=== PATIENT | male | born 1995 | race Caucasian/White ===

== ENCOUNTER 2021-09-06 13:08 | Emergency (ER) | payer SELFPAY ==
[~2021-09-06] VITALS: Ht 172.7 cm; Wt 76.7 kg
--- NOTE | 2021-09-06 13:34 | PHYS DOC ---
General Adult EDM: Chief Complaint: ABDOMINAL PAIN HPI: HPI: Patient is a 25-year-old male coming in for left upper quadrant abdominal pain and vomiting. Patient states he was at work when his symptoms started and were fairly rapid in onset. Patient's last bowel movement this morning. Denies any hematuria or dysuria. No medical or surgical history. Pain does not radiate to the back. Review of Systems: Review of Systems: All other systems within normal limits except for as noted in the HPI Physical Exam: PE: Constitutional: Well developed, well nourished, no acute distress, non-toxic appearance. [] HENT: Normocephalic, atraumatic, bilateral external ears normal, nose normal. [] Eyes: PERRLA, conjunctiva normal, no discharge. [] Neck: No rigidity, supple, no stridor. [] Cardiovascular: Regular rate and rhythm, brisk cap refill [] Lungs & Thorax: Non labored symmetric respirations, no tachypnea or respiratory distress [] Abdomen: Soft, nondistended, left upper quadrant pain. Skin: Warm, dry, no erythema, no rash. [] Back: Unremarkable Extremities: No deformities, range of motion grossly intact, no lower extremity edema [] Neurologic: Alert and oriented X 3, no focal deficits noted. [] Psychologic: Affect normal, judgement normal, mood normal. [] EKG: EKG: [] Radiology/Procedures: Radiology/Procedures: [place] [address] IMAGING REPORT Signed PATIENT: SHEREE PAYNE ACCOUNT: [id number] : 1995 LOCATION: ER AGE: 25 SEX: M EXAM STATUS: REG ER ORD. PHYSICIAN: APRIL BEDOLLA MD REASON: pancreatitis PROCEDURE: ABDOMEN OR LWR BACK LTD Ultrasound the abdomen limited HISTORY: Pancreatitis Ultrasound was used to evaluate the gallbladder and right upper quadrant. Mid body the pancreas was generous in size without abnormal fluid. Head and tail of pancreas were incompletely evaluated. Aorta and vena cava were unremarkable. Liver was normal in size and appearance. There is slight sludge in the gallbladd er, gallstones were not identified. Gallbladder wall is not thickened. Focal liver lesion was not identified. Common duct was normal measuring 2 mm. Right kidney was 11.7 cm in length without a mass or hydronephrosis. IMPRESSION: 1. No gallstones noted. 2. Common duct nondilated. 3. Liver normal in appearance. Electronically signed by: Sunny Huff MD (09/06/2021 4:04 PM) [facility] DICTATED AND SIGNED BY: SUNNY HUFF MD DATE: 09/06/21 1602 CC: APRIL BEDOLLA MD; PCP,NO ~MTH0 0 [][place] [address] IMAGING REPORT Signed PATIENT: SHEREE PAYNE ACCOUNT: [id number] : 1995 LOCATION: ER AGE: 25 SEX: M EXAM STATUS: REG ER ORD. PHYSICIAN: APRIL BEDOLLA MD REASON: Left abd pain, language barrier for breathing instructions PROCEDURE: CT ABD PELV W/ IV CONTRST ONLY CT abdomen pelvis with contrast. HISTORY: Left abdominal pain CT abdomen pelvis was done using 75 mL Omnipaque 300 contrast. There is mild atelectasis in the lung bases without other infiltrates. Spleen is unremarkable. Liver is normal in appearance. There is no calcified gallstone. There is no ma ss or hydronephrosis in the kidneys. A ureteral calculus is not identified. Pancreas is normal in appearance. There is no bowel obstruction. There is increased stool at the rectum. There is no small bowel obstruction. There is no adenopathy. Appendix is normal in appearance. There is not evidence of a diverticulitis. IMPRESSION: 1. Mild increased stool at the rectum. 2. No small bowel obstruction noted. 3. Negative for diverticulitis. 4. No renal or ureteral calculus. RS Compliance Statement: One or more of the following individualized dose reduction techniques were utilized for this examination: 1. Automated exposure control 2. Adjustment of the mA and/or kV according to patient size 3. Use of iterative reconstruction technique Electronically signed by: Sunny Huff MD (09/06/2021 2:51 PM) [facility] DICTATED AND SIGNED BY: SUNNY HUFF MD DATE: 09/06/21 1431 CC: APRIL BEDOLLA MD; PCP,NO ~MTH0 0 Heart Score: C/O Chest Pain: No Risk Factors: Risk Factors: DM, Current or recent (<one month) smoker, HTN, HLP, family hist ory of CAD, obesity. Risk Scores: Score 0 - 3: 2.5% MACE over next 6 weeks - Discharge Home Score 4 - 6: 20.3% MACE over next 6 weeks - Admit for Clinical Observation Score 7 - 10: 72.7% MACE over next 6 weeks - Early Invasive Strategies Course & Med Decision Making: Course & Med Decision Making Pertinent Labs and Imaging studies reviewed. (See chart for details) Discussed with [facility] transfer line, will accept patient. Patient with pancreatitis without evidence of gallstones or no history of alcohol use. Patient was found to be significantly hypercalcemic as well as hypophosphatemic. Send out labs sent for thyroid and parathyroid studies. Concern for primary hyperparathyroid syndrome causing the lab abnormalities and the hypercalcemia possibly precipitating the pancreatitis. Patient given IV fluids and phosphate in the emergency department. [] Susu Disclaimer: Susu Disclaimer: This electronic medical record was generated, in whole or in part, using a voice recognition dictation system. Departure Departure: Impression: Primary Impression: Pancreatitis Additional Impressions: Hypercalcemia Hypophosphatemia Disposition: 02 SHORT TERM HOSPITAL Condition: GUARDED Referrals: PCP,NO (PCP) APRIL BEDOLLA MD Sep 06, 2021 13:34
[2021-09-06 13:43] LABS: BASO % 0 % (0-3); EOS # 0.1 x10^3/uL (0.0-0.7); EOS % 1 % (0-3); HEMATOCRIT 47.2 % (39.0-53.0); HEMOGLOBIN 15.7 g/dL (13.0-17.5); LYMPH # 2.3 x10^3/uL (1.0-4.8); LYMPH % 18 % (24-48); MEAN CORPUSCULAR HEMOGLOBIN 30 pg (25-35); MEAN CORPUSCULAR HGB CONC 33 g/dL (31-37); MEAN CORPUSCULAR VOLUME 91 fL (79-100); MONO % 8 % (0-9); NEUT # 9.2 x10^3uL (1.8-7.7); NEUT % 73 % (31-73); PLATELET COUNT 320 x10^3/uL (140-400); RED CELL DISTRIBUTION WIDTH 14.1 % (11.5-14.5); WHITE BLOOD COUNT 12.6 x10^3/uL (4.0-11.0)
[2021-09-06] MEDS ORDERED: IV NORMAL SALINE 1,000ML 1,000 ML IV ONE ×3 (13:45→16:30)
[2021-09-06] MEDS ORDERED: ONDANSETRON PF 4 MG/2 ML VIAL. IVP ONE (13:45)
[2021-09-06] MEDS ORDERED: IOHEXOL 300 MG/ML 75 ML VIAL. IV ONE (13:45)
[2021-09-06] MEDS ORDERED: KETOROLAC 15 MG/ML VIAL. IVP ONE (13:45)
[2021-09-06 14:07] LABS: ALBUMIN 4.5 g/dL (3.4-5.0); ALBUMIN/GLOBULIN RATIO 1.1 (1.0-1.7); GFR 90.3; POTASSIUM 3.6 mmol/L (3.5-5.1); TOTAL BILIRUBIN 0.4 mg/dL (0.2-1.0); TOTAL PROTEIN 8.5 g/dL (6.4-8.2)
--- NOTE | 2021-09-06 14:53 | RAD ---
CT abdomen pelvis with contrast. HISTORY: Left abdominal pain CT abdomen pelvis was done using 75 mL Omnipaque 300 contrast. There is mild atelectasis in the lung bases without other infiltrates. Spleen is unremarkable. Liver is normal in appearance. There is no c alcified gallstone. There is no mass or hydronephrosis in the kidneys. A ureteral calculus is not bridgette ntified. Pancreas is normal in appearance. There is no bowel obstruction. There is increased stool at the rectum. There is no small bowel obstruction. There is no adenopathy. Appendix is normal in appea yusef. There is not evidence of a diverticulitis. IMPRESSION: 1. Mild increased stool at the rectum. 2. No small bowel obstruction noted. 3. Negative for diverticulitis. 4. No renal or ureteral calculus. PQRS Compliance Statement: One or more of the following individualized dose reduction techniques were utilized for this examinat ion: 1. Automated exposure control 2. Adjustment of the mA and/or kV according to patient size 3. Use of iterative reconstruction technique Electronically signed by: Sunny Morgan MD (09/06/2021 2:51 PM) [facility]
[2021-09-06 15:06] LABS: MAGNESIUM 2.2 mg/dL (1.8-2.4); PHOSPHORUS 1.9 mg/dL (2.6-4.7)
[2021-09-06 15:13] LABS: CALCIUM 14.2 mg/dL (8.5-10.1)
[2021-09-06 15:17] LABS: BACTERIA,URINE 0 /HPF (0-FEW); BILIRUBIN,URINE NEG (NEG); CLARITY,URINE CLEAR; COLOR,URINE YELLOW; GLUCOSE,URINE NEG (NEG); NITRITE,URINE NEG (NEG); RBC,URINE 0 /HPF (0-2); SQUAMOUS EPITHELIAL CELL,UR OCC /LPF; UROBILINOGEN,URINE 0.2 mg/dL (0.2 mg/dL); WBC,URINE 0 /HPF (0-4)
--- NOTE | 2021-09-06 15:20 | NUR ---
PAGED [facility]
[2021-09-06] MEDS ORDERED: SODIUM PHOSPHATE 20 MMOL in IV DEXTROSE 5% 250 ML IV ONE (15:30)
[2021-09-06] MEDS ORDERED: POTASSIUM PHOSPHATE DIBASIC 20 MMOL in IV NORMAL SALINE 250ML 250 ML IV ONE (16:00)
--- NOTE | 2021-09-06 16:07 | RAD ---
Ultrasound the abdomen limited HISTORY: Pancreatitis Ultrasound was used to evaluate the gallbladder and right upper quadrant. Mid body the pancreas was g enerous in size without abnormal fluid. Head and tail of pancreas were incompletely evaluated. Aorta and vena cava were unremarkable. Liver was normal in size and appearance. There is slight sludge in t he gallbladder, gallstones were not identified. Gallbladder wall is not thickened. Focal liver lesion was not identified. Common duct was normal measuring 2 mm. Right kidney was 11.7 cm in length withou t a mass or hydronephrosis. IMPRESSION: 1. No gallstones noted. 2. Common duct nondilated. 3. Liver normal in appearance. Electronically signed by: Sunny Morgan MD (09/06/2021 4:04 PM) [facility]
[2021-09-06 16:50] VITALS: BP 126/73
--- NOTE | 2021-09-06 18:59 | EKG ---
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
== END 2021-09-06 17:30 | disposition short-term general hospital (02) ==
LOC: ER 13:08
DX: K85.90 Acute pancreatitis without necrosis or infection, unspecified (principal); E83.52 Hypercalcemia; E83.39 Other disorders of phosphorus metabolism; Z20.822 Contact with and (suspected) exposure to COVID-19
CPT/HCPCS: 36415; 74177; 76705; 80053; 81001; 83605; 83690; 83735; 84100; 84443; 85025; 87426; 93005; 96361; 96374; 96375; 96376; 99285; C9803; G0480; J1885; J2405; J3010; J7030; J7050; Q9967; U0003